=== PATIENT | male | born 1940 | race Caucasian/White ===

== ENCOUNTER 2019-05-18 07:26 | Day surgery (SDC) | payer MEDICARE ==
[2019-05-17 14:42] LABS: BASOPHILS # (AUTO) 0.1 X10'3 (0-0.2); BASOPHILS % (AUTO) 1.1 % (0-1); EOSINOPHILS # (AUTO) 0.1 X10'3 (0-0.9); EOSINOPHILS % (AUTO) 1.5 % (0-6); HEMATOCRIT 41.2 % (42.0-52.0); HEMOGLOBIN 13.8 g/dl (14.0-17.9); LYMPHOCYTES # (AUTO) 0.9 X10'3 (1.1-4.8); LYMPHOCYTES % (AUTO) 16.4 % (21-51); MEAN CORPUSCULAR HEMOGLOBIN 31.3 PG (27.0-31.0); MEAN CORPUSCULAR HGB CONC 33.6 g/dL (33.0-36.5); MEAN CORPUSCULAR VOLUME 93.1 FL (78-98); MEAN PLATELET VOLUME 8.3 FL (7.4-10.4); MONOCYTES # (AUTO) 0.6 X10'3 (0-0.9); MONOCYTES % (AUTO) 9.9 % (2-12); NEUTROPHILS % (AUTO) 71.1 % (42-75); PLATELET COUNT 219 X10'3 (140-440); RED BLOOD COUNT 4.42 X10'6 (4.70-6.10); RED CELL DISTRIBUTION WIDTH 15.2 % (11.5-14.5); WHITE BLOOD COUNT 5.6 X10'3 (4.5-11.0)
[2019-05-17 14:52] LABS: ALBUMIN 3.8 G/DL (3.4-5.0); ANION GAP 7 (8-16); BLOOD UREA NITROGEN 17 MG/DL (7-18); BUN/CREATININE RATIO 21.5 (5.4-32.0); CALCIUM 9.4 MG/DL (8.5-10.1); CHLORIDE 107 MMOL/L (99-107); CREATININE 0.79 MG/DL (0.60-1.10); GLUCOSE 98 MG/DL (70-104); POTASSIUM 4.1 MMOL/L (3.5-5.1); SODIUM 141 MMOL/L (135-145); TOTAL CARBON DIOXIDE 27.1 MMOL/L (24-32); eGFR > 90 ML/MIN
[2019-05-17 14:53] LABS: PARTIAL THROMBOPLASTIN TIME 28 SECONDS (22-32)
[2019-05-18] VITALS (10 sets, daily range): BP systolic 91–142; BP diastolic 50–85
[~2019-05-18] VITALS: Ht 175.3 cm; Wt 68.7 kg
[2019-05-18] MEDS ORDERED: diphenhydrAMINE 25mg capsule PO PRN (07:40)
[2019-05-18] MEDS ORDERED: normal saline 1,000 ML IV SCH (07:40)
[2019-05-18] MEDS ORDERED: LORazepam 0.5 MG tablet PO PRN (07:40)
[2019-05-18] MEDS ORDERED: MULT1TAB74 PO (07:59)
[2019-05-18] MEDS ORDERED: CHOL100034 PO (07:59)
[2019-05-18] MEDS ORDERED: RIVA20TA PO (07:59)
[2019-05-18] MEDS ORDERED: ACET-812 PO (07:59)
[2019-05-18] MEDS ORDERED: ATOR10TA PO (07:59)
[2019-05-18] MEDS ORDERED: OMEG1CAP2 PO (07:59)
[2019-05-18] MEDS ORDERED: ASCO500C15 PO (07:59)
[2019-05-18] MEDS ORDERED: DICL100G15 TOP (07:59)
[2019-05-18] MEDS ORDERED: MAGN500C16 PO (07:59)
[2019-05-18] MEDS ORDERED: pneumococcal 23-VAL P-sac vacc 25 mcg/0.5ml vial IMVAC ONE (08:55)
[2019-05-18] MEDS ORDERED: LIDOcaine/PRILOcaine 5gm cream TP ONE (09:15)
[2019-05-18] MEDS ORDERED: midazolam 2 mg/2 ml injection ONE (09:28)
[2019-05-18] MEDS ORDERED: verapamil 2.5 mg/ml inj IV ONE (09:28)
[2019-05-18] MEDS ORDERED: nitroGLYCERIN-Tridil 50MG/D5W 250 ML IV ONE (09:28)
[2019-05-18] MEDS ORDERED: iohexol 350 MG/ML 50ML vial IV ONE (09:29)
[2019-05-18] MEDS ORDERED: iohexol 350MG/ML 100ml bottle IV ONE ×2 (09:29→10:20)
[2019-05-18] MEDS ORDERED: fentaNYL/PF 50MCG/1 ML 2ML syringe ONE (09:29)
[2019-05-18] MEDS ORDERED: LIDOcaine 1% (10mg/ml)w/preservative injection 20ml MDV ONE (09:29)
[2019-05-18] MEDS ORDERED: heparin 1,000unit/ml 10ml vial 10 ML ONE (09:29)
[2019-05-18] MEDS ORDERED: adenosine 90 MG/30ml kit =/or below 120kg Cath Lab IV ONE (10:27)
[2019-05-18] MEDS ORDERED: atropine 0.1mg/ml 10ml syringe ONE (10:39)
== END 2019-05-18 16:04 | disposition home or self-care (01) ==
LOC: SSTAY O 07:26
PROVIDERS: ATTEND Internal Medicine Cardiovascular Disease
DX: I25.10 Atherosclerotic heart disease of native coronary artery without angina pectoris (principal); E78.5 Hyperlipidemia, unspecified; I48.0 Paroxysmal atrial fibrillation
CPT/HCPCS: 36415; 80048; 85025; 85610; 85730; 93458; 93571; 99152; 99153; C1769; C1894; J0153; J0461; J1644; J2001; J2250; J3010; J7030; Q0163; Q9967; 93005; A4620; J3490

== ENCOUNTER 2021-11-01 20:46 | Emergency (ER) | payer MEDICARE ==
[~2021-11-01] VITALS: Ht 175.3 cm; Wt 73.9 kg
[~2021-11-01 20:46] MED LIST: ACET-812 PO; ASCO500C18 PO; ATOR10TA PO; DICL100G15 TOP; LACT1CAP65 PO; LOP25T PO; MAGN500C16 PO; MULT-620 PO; PSYL1PAC9 PO; RIVA20TA PO
[2021-11-01 21:07] VITALS: BP 129/99
[2021-11-02] MEDS ORDERED: celeCOXIB 100mg capsule PO ONE (01:30)
[2021-11-02] MEDS ORDERED: HYDR-3965 PO (01:56)
[2021-11-02] MEDS ORDERED: CELE-193 PO (01:56)
== END 2021-11-02 02:25 | disposition home or self-care (01) ==
LOC: ER 20:48
DX: S42.031A Displaced fracture of lateral end of right clavicle, initial encounter for closed fracture (principal); S60.012A Contusion of left thumb without damage to nail, initial encounter; M25.511 Pain in right shoulder; I48.91 Unspecified atrial fibrillation; E78.00 Pure hypercholesterolemia, unspecified; Z88.0 Allergy status to penicillin; Z79.899 Other long term (current) drug therapy; W19.XXXA Unspecified fall, initial encounter; Y93.89 Activity, other specified; Y92.89 Other specified places as the place of occurrence of the external cause; Y99.8 Other external cause status
CPT/HCPCS: 29105; 73030; 73120; 99284

== ENCOUNTER 2021-11-10 15:13 | Observation (INO) | payer MEDICARE ==
[~2021-11-10] VITALS: Ht 175.3 cm; Wt 72.0 kg
[~2021-11-10 15:13] MED LIST changes: +CELE-193 PO; +HYDR-3965 PO
[2021-11-10 15:58] LABS: BASOPHILS % (AUTO) 0.8 % (0-1); EOSINOPHILS # (AUTO) 0.1 X10'3 (0-0.9); EOSINOPHILS % (AUTO) 2.3 % (0-6); HEMOGLOBIN 13.8 g/dl (14.0-17.9); LYMPHOCYTES # (AUTO) 0.7 X10'3 (1.1-4.8); LYMPHOCYTES % (AUTO) 12.4 % (21-51); MEAN CORPUSCULAR HEMOGLOBIN 31.1 PG (27.0-31.0); MEAN CORPUSCULAR HGB CONC 33.6 g/dL (33.0-36.5); MEAN CORPUSCULAR VOLUME 92.4 FL (78-98); MEAN PLATELET VOLUME 8.4 FL (7.4-10.4); MONOCYTES # (AUTO) 0.5 X10'3 (0-0.9); MONOCYTES % (AUTO) 8.3 % (2-12); NEUTROPHILS # (AUTO) 4.3 X10'3 (1.8-7.7); NEUTROPHILS % (AUTO) 76.2 % (42-75); PLATELET COUNT 210 X10'3 (140-440); RED BLOOD COUNT 4.44 X10'6 (4.70-6.10); RED CELL DISTRIBUTION WIDTH 15.3 % (11.5-14.5); WHITE BLOOD COUNT 5.6 X10'3 (4.5-11.0)
[2021-11-10 16:09] LABS: APTT 30 SECONDS (22-32)
[2021-11-10 16:13] LABS: ALANINE AMINOTRANSFERASE 30 U/L (12-78); ALBUMIN 3.6 G/DL (3.4-5.0); ALBUMIN/GLOBULIN RATIO 1.2 (1.1-1.5); ALKALINE PHOSPHATASE 71 IU/L (46-116); ANION GAP 8 (8-16); ASPARTATE AMINO TRANSFERASE 22 U/L (10-37); BILIRUBIN,TOTAL 0.9 MG/DL (0.1-1.0); BLOOD UREA NITROGEN 18 MG/DL (7-18); CALCIUM 9.3 MG/DL (8.5-10.1); CHLORIDE 107 MMOL/L (99-107); CREATININE 0.82 MG/DL (0.60-1.10); GLUCOSE 150 MG/DL (70-104); SODIUM 142 MMOL/L (135-145); TOTAL PROTEIN 6.6 G/DL (6.4-8.2); eGFR 90 ML/MIN
[2021-11-10 16:23] LABS: MAGNESIUM 2.3 MG/DL (1.5-2.4)
[2021-11-10] MEDS ORDERED: potassium Cl 20 mEq SR tablet PO PRN ×2 (17:25)
[2021-11-10] MEDS ORDERED: potassium CL 10mEq/100ml bag 100 ML IV PRN (17:25)
[2021-11-10] MEDS ORDERED: magnesium Cl slow-release 64mg tablet PO PRN (17:25)
[2021-11-10] MEDS ORDERED: magnesium 4gm in 100ml NS 100 ML IV PRN (17:25)
[2021-11-10] MEDS ORDERED: acetaminophen 325mg tablet PO PRN (17:25)
[2021-11-10] MEDS ORDERED: normal saline 1000ml 1,000 ML IV SCH (17:25)
[2021-11-10] MEDS ORDERED: magnesium hydroxide 30ml (MOM) UD suspension PO PRN (17:25)
[2021-11-10] MEDS ORDERED: magnesium 2GM in 50ml NS 50 ML IV PRN (17:25)
[2021-11-10] MEDS ORDERED: morphine 2 MG/ML inj. syringe IV PRN ×2 (17:25)
[2021-11-10] MEDS ORDERED: ondansetron/PF 4mg/2ml inj IV PRN (17:25)
[2021-11-10] MEDS ORDERED: mag hydrox/Alum hydrox/simeth 30ml oral suspension PO PRN (17:25)
[2021-11-10] MEDS: docusate sod 100mg capsule PO SCH (20:00)
[2021-11-10] MEDS: K and/or MAG REPLACEMENT MC SCH (20:00)
[2021-11-10] MEDS ORDERED: METO25TA6 PO (21:06)
[2021-11-10] MEDS ORDERED: ATOR20TA66 PO (21:06)
[2021-11-10 21:30] VITALS: BP 154/85
[2021-11-11 02:00] VITALS: BP 141/82
[2021-11-11 06:02] LABS: BASOPHILS % (AUTO) 0.7 % (0-1); EOSINOPHILS # (AUTO) 0.3 X10'3 (0-0.9); EOSINOPHILS % (AUTO) 4.4 % (0-6); HEMATOCRIT 37.1 % (42.0-52.0); HEMOGLOBIN 12.5 g/dl (14.0-17.9); LYMPHOCYTES # (AUTO) 1.3 X10'3 (1.1-4.8); LYMPHOCYTES % (AUTO) 20.3 % (21-51); MEAN CORPUSCULAR HGB CONC 33.6 g/dL (33.0-36.5); MEAN CORPUSCULAR VOLUME 92.3 FL (78-98); MEAN PLATELET VOLUME 8.5 FL (7.4-10.4); MONOCYTES # (AUTO) 0.8 X10'3 (0-0.9); MONOCYTES % (AUTO) 12.1 % (2-12); NEUTROPHILS # (AUTO) 3.9 X10'3 (1.8-7.7); NEUTROPHILS % (AUTO) 62.5 % (42-75); PLATELET COUNT 210 X10'3 (140-440); RED BLOOD COUNT 4.02 X10'6 (4.70-6.10); RED CELL DISTRIBUTION WIDTH 15.1 % (11.5-14.5); WHITE BLOOD COUNT 6.3 X10'3 (4.5-11.0)
[2021-11-11 06:19] LABS: ALBUMIN 3.3 G/DL (3.4-5.0); ANION GAP 10 (8-16); BLOOD UREA NITROGEN 18 MG/DL (7-18); BUN/CREATININE RATIO 23.1 (5.4-32.0); CALCIUM 8.9 MG/DL (8.5-10.1); CHLORIDE 107 MMOL/L (99-107); CREATININE 0.78 MG/DL (0.60-1.10); GLUCOSE 108 MG/DL (70-104); POTASSIUM 4.3 MMOL/L (3.5-5.1); SODIUM 141 MMOL/L (135-145); TOTAL CARBON DIOXIDE 23.6 MMOL/L (24-32); eGFR > 90 ML/MIN
[2021-11-11] MEDS ORDERED: MET0.75G TOP (07:02)
[2021-11-11] MEDS ORDERED: DICL100G30 TOP (07:02)
[2021-11-11] MEDS ORDERED: METO25TA6 PO (07:02)
[2021-11-11] MEDS: K and/or MAG REPLACEMENT MC SCH (08:00)
[2021-11-11] MEDS: docusate sod 100mg capsule PO SCH (08:00)
[2021-11-11 11:00] VITALS: BP 142/68
[2021-11-11] MEDS ORDERED: OMEP40CA21 PO (12:14)
== END 2021-11-11 14:45 | disposition home or self-care (01) ==
LOC: ER 15:14 → ED HOLD 17:23 → EDBEDREQ 20:00 → PCU 3S 21:20
PROVIDERS: ADMIT Family Medicine; ATTEND Family Medicine
DX: I24.9 Acute ischemic heart disease, unspecified (principal); R07.89 Other chest pain; I25.110 Atherosclerotic heart disease of native coronary artery with unstable angina pectoris; Z20.822 Contact with and (suspected) exposure to COVID-19; I48.91 Unspecified atrial fibrillation; E78.00 Pure hypercholesterolemia, unspecified; I10 Essential (primary) hypertension; E78.5 Hyperlipidemia, unspecified; Z79.01 Long term (current) use of anticoagulants; Z79.899 Other long term (current) drug therapy; Z88.0 Allergy status to penicillin
CPT/HCPCS: 36415; 71045; 80048; 80053; 83735; 83880; 84132; 84484; 85025; 85610; 85730; 87081; 87635; 93005; 99285; C9803; G0378; J7030